=== PATIENT | female | born 1950 | race Caucasian/White ===

== ENCOUNTER 2017-02-21 22:07 | Emergency (ER) | payer OTHER | END 2017-02-22 02:14 | disposition home or self-care (01) | LOC: FER 22:07 | DX: R21 Rash and other nonspecific skin eruption (principal); L29.9 Pruritus, unspecified; G25.81 Restless legs syndrome; Z79.899 Other long term (current) drug therapy; Z88.2 Allergy status to sulfonamides; Z88.5 Allergy status to narcotic agent | CPT/HCPCS: J1100 ==